=== PATIENT | male | born 1965 | race Caucasian/White ===

== ENCOUNTER → 2019-11-04 09:55 | Outpatient (BNVA) | payer BC, SELFPAY | PROVIDERS: Family Provider Family Medicine; PCP Nurse Practitioner Family; Referring Provider Nurse Practitioner Family; Visit Provider Anesthesiology Pain Medicine | DX: M54.16 Radiculopathy, lumbar region (principal); M47.816 Spondylosis without myelopathy or radiculopathy, lumbar region; M62.830 Muscle spasm of back; Z79.891 Long term (current) use of opiate analgesic | CPT/HCPCS: 99205 ==

== ENCOUNTER → 2021-08-13 14:19 | Outpatient (BNVA) | payer BC, SELFPAY | PROVIDERS: Family Provider Family Medicine; PCP Family Medicine; Visit Provider Urology | DX: N48.9 Disorder of penis, unspecified (principal) | CPT/HCPCS: 81003 ==

== ENCOUNTER 2021-10-25 03:27 | Inpatient (IN) | payer BC, SELFPAY ==
[2021-10-25] VITALS (14 sets, daily range): BP systolic 135–185; BP diastolic 74–105; PULSE 65–98; RESP 18–22; TEMP 36.7–37.1; O2SAT 94–100; BMI 24.4
--- NOTE | 2021-10-25 03:31 | ECG_ITS ---
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 Measurements Intervals [place] Rate: 67 P: 66 [place]: 132 QRS: 84 QRSD: 149 T: 57 QT: 448 QTc: 473 Interpretive Statements SINUS RHYTHM RIGHT BUNDLE BRANCH BLOCK [120+ ms QRS DURATION, UPRIGHT V1, 40+ ms S IN I/aVL/V4/V5/V6] No previous ECG available for comparison Electronically Signed On 10-26-2021 8:34:58 MACHINE ETCHER by Jennifer Jovel M.D. [id number]
--- NOTE | 2021-10-25 03:31 | XRR_ITS ---
PROCEDURE INFORMATION: Exam: XR Chest Exam date and time: 10/25/2021 3:31 AM Age: 56 years old Clinical indication: Chest pressure; Patient HX: C/O chest pain. ; Additional info: Cp TECHNIQUE: Imaging protocol: XR of the chest. Views: 1 view. COMPARISON: CT abdomen pelvis w con* [id number] 01/31/2016 10:07 AM FINDINGS: Lungs: Unremarkable. No consolidation. Pleural spaces: Unremarkable. No pleural effusion. No pneumothorax. Heart/Mediastinum: Unremarkable. No cardiomegaly. Bones/joints: Unremarkable. XR/XR chest 1V portable [id number] IMPRESSION: No acute findings.
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
[2021-10-25 03:38] LABS: Basophils % 0.2 %; Eosinophils % 0.2 %; Hematocrit 42.7 % (42.0-52.0); Hemoglobin 14.2 g/dL (11.7-16.6); Lymphocytes # 0.8 10^3/uL (0.8-4.8); Mean Corpuscular HGB Conc 33.3 g/dL (30.0-36.0); Mean Corpuscular Hemoglobin 29.8 pg (28.0-34.0); Mean Corpuscular Volume 89.5 fl (80-94); Mean Platelet Volume 9.7 fL (7.4-10.4); Monocytes # 0.6 10^3/uL (0.2-0.9); Monocytes % 5.7 %; Neutrophils # 9.59 10^3/uL (1.8-7.7); Neutrophils % 86.6 %; Nucleated Red Blood Cells % 0 %; Platelet Count 302 10^3/cmm (130-400); Red Blood Count 4.77 10^6/uL (4.1-5.3); Red Cell Distribution Width 13.8 % (12.1-15.1); White Blood Count 11.1 10^3/uL (4.0-10.0)
[2021-10-25] MEDS: sodium chloride 0.9% 1,000 ML 999 ML IV (03:39)
[2021-10-25] MEDS: lidocaine 2% viscous 15 ML, aluminum-mag hydrox-simethicon 30 ML, sucralfate oral liq 1 GM PO (03:40)
--- NOTE | 2021-10-25 03:47 | CTR_ITS ---
PROCEDURE INFORMATION: Exam: CT Abdomen And Pelvis With Contrast Exam date and time: 10/25/2021 3:47 AM Age: 56 years old Clinical indication: Vomiting; Abdominal pain; Patient HX: Epigastric pain with bile emesis. ; Additional info: Abd pain TECHNIQUE: Imaging protocol: Computed tomography of the abdomen and pelvis with contrast. Radiation optimization: All CT scans at this facility use at least one of these dose optimization techniques: automated exposure control; mA and/or kV adjustment per patient size (includes targeted exams where dose is matched to clinical indication); or iterative reconstruction. Contrast material: OMNI 300; Contrast volume: 95 ml; Contrast route: INTRAVENOUS (IV); COMPARISON: CT abdomen pelvis w con* [id number] 01/31/2016 10:07 AM RADIATION DOSE METRICS: Total DLP (mGy-cm): 1720.65 FINDINGS: Lungs: A partially calcified nodularity seen in the left lung base laterally measuring 4.5 mm likely representing a benign partially calcified granuloma. Liver: Normal. No mass. Gallbladder and bile ducts: The gallbladder is patulous and surrounded by some strandy and hazy opacities and pericholecystic fluid, findings suggesting inflammatory changes and acalculous cholecystitis. Pancreas: Normal. No ductal dilation. Spleen: Normal. No splenomegaly. Adrenal glands: Normal. No mass. Kidneys and ureters: There are benign appearing hypoattenuation cystic lesions seen within both kidneys, largest is seen on the right measuring 9.3 mm. Stomach and bowel: There is mild bowel wall thickening seen within the hepatic flexure of the colon possibly representing reactive inflammatory changes. There are nondilated small bowel loops present containing fluid and a few air-fluid levels that could represent ileus. Appendix: No evidence of appendicitis. Intraperitoneal space: Unremarkable. No free air. No significant fluid collection. Vasculature: Unremarkable. No abdominal aortic aneurysm. Lymph nodes: Unremarkable. No enlarged lymph nodes. Urinary bladder: Unremarkable as visualized. Reproductive: Unremarkable as visualized. Bones/joints: Unremarkable. No acute fracture. Soft tissues: Unremarkable. Other findings: There is mild thickening of Gerota's fascia on the right. Strandy opacities are seen in the perinephric fascia bilaterally most probably representing chronic scarring. CT/CT abdomen pelvis w con* [id number] IMPRESSION: 1. Patulous gallbladder with mild pericholecystic fluid and surrounding inflammatory changes suggesting acalculous cholecystitis. 2. Probable reactive inflammatory changes seen within the adjacent hepatic flexure of the colon. 3. Benign bilateral renal cysts, the largest seen on the right measuring 9.3 mm. No further workup needed. 4. Nondilated small bowel loops containing fluid and air fluid levels could represent mild ileus. COMMENTS: Consistent with the [place] [employer]'s Incidental Findings Committee white paper (J Am Marvin Radiol 2018): Any incidental renal lesion less than 1 cm or classified as too small to characterize, or any incidental cystic renal lesion characterized as simple-appearing, is likely benign. No follow-up imaging is recommended for these lesions per consensus recommendations based on imaging criteria.
[2021-10-25] MEDS: ondansetron 2 mg/ML SDV 2 mL 4 MG IVP (03:51)
[2021-10-25] MEDS: morphine 4 mg/mL SDV 1 mL IVP (03:52)
[2021-10-25 03:56] LABS: Troponin(5th) Baseline 12 ng/L (0-15)
[2021-10-25 03:59] LABS: Alanine Aminotransferase 14 U/L (0-41); Albumin Level 4.3 g/dL (3.5-5.2); Alkaline Phosphatase 57 IU/L (40-130); Anion Gap 19.4 (5-19); Aspartate Amino Transferase 16 U/L (0-40); Blood Urea Nitrogen 13 mg/dL (6-20); Calcium 8.9 mg/dL (8.5-10.5); Carbon Dioxide 24 mmol/L (22-29); Chloride 92 mmol/L (98-107); Globulin 2.5 g/dL (1.3-4.6); Glomerular Filtration Rate 117.5 mL/min (90-130); Glucose 260 mg/dL (65-115); Lipase 30 U/L (13-60); Osmolality Calculated 283 mOsm/kg (285-295); Potassium 3.4 mmol/L (3.5-5.1); Sodium 132 mmol/L (136-145); Total Bilirubin 1.5 mg/dL (0.15-1.2); Total Protein 6.8 g/dL (6.6-8.7)
[2021-10-25] MEDS: iohexol 300 mg/mL 100 mL Btl IV (04:11)
[2021-10-25] MEDS: HYDROmorphone 1 mg/mL INJ 1 mL IVP (05:27)
--- NOTE | 2021-10-25 05:31 | ECG_ITS ---
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 Measurements Intervals [place] Rate: 74 P: 67 OR: 128 QRS: 88 QRSD: 150 T: 46 QT: 424 QTc: 471 Interpretive Statements SINUS RHYTHM RIGHT BUNDLE BRANCH BLOCK [120+ ms QRS DURATION, UPRIGHT V1, 40+ ms S IN I/aVL/V4/V5/V6] Compared to ECG 10/25/2021 03:33:09 No significant changes Electronically Signed On 10-26-2021 9:02:50 CPR AMBULANCE DRIVER by Jennifer Jovel M.D. [id number]
[2021-10-25] MEDS: piperacillin-tazobactam 3.375 GM in sodium chloride 0.9% (plus) 50 ML IV ×3 (05:44→15:27)
[2021-10-25 05:52] LABS: Troponin 5 2HR 10.33 ng/L (0-15)
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
[2021-10-25 06:31] LABS: INR 1.03 (0.8-1.2)
[2021-10-25 06:50] LABS: Troponin 5 2HR Delta -1.67 ABS# (0-10)
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
--- NOTE | 2021-10-25 07:26 | US_ITS ---
WS: [id number] ULTRASOUND ABDOMEN LIMITED CLINICAL INFORMATION: Right upper quadrant abdominal pain COMPARISON: CT October 25, 2021 FINDINGS: Technically difficult study Liver Size: Mild hepatomegaly Craniocaudal length: 17.0 cm. Echogenicity: Normal. Surface nodularity: None. Mass (size and location): None. Bile ducts Intrahepatic ducts: Normal. Common bile duct diameter: 0.3 cm. Gallbladder Hydropic Gallstones: None. Gallbladder sludge: Present Gallbladder wall thickenin.4 mm Pericholecystic fluid: None. Pancreas Normal as visualized. Right kidney: Normal. Hydronephrosis: None. Size: 12.1 cm x 6.0 cm x 4.4 cm. Abdominal aorta and IVC Visualized portions are normal. Ascites: None. US/US gall bladder [id number] IMPRESSION: Technically difficult study. 1. Mild hepatomegaly. No intrahepatic biliary ductal dilatation. 2. Hydropic gallbladder with sludge. Gallbladder wall thickening with mild cyril ma. No visualized cholelithiasis. Correlation for acalculous cholecystitis 3. Normal common bile duct. 4. No hydronephrosis in RIGHT kidney.
[2021-10-25] MEDS: sodium chloride 0.9% 1,000 ML 100 ML IV ×2 (07:43→17:13)
[2021-10-25] MEDS: metoprolol succinate ER (24 HR) 50 mg Tablet PO (07:47)
[2021-10-25] MEDS: atorvastatin 40 mg Tablet PO (07:47)
[2021-10-25] MEDS: escitalopram 10 mg Tablet PO (07:48)
[2021-10-25] MEDS: lisinopril 20 mg Tablet 40 MG PO (07:48)
[2021-10-25] MEDS: hydroCHLOROthiazide 25 mg Tablet PO (07:48)
[2021-10-25 09:27] LABS: Amphetamines Screen Urine Positive (Negative); Barbiturates Screen Urine Negative (Negative); Benzodiazepines Screen Urine Positive (Negative); Cocaine Screen Urine Negative (Negative); Opiate Screen Urine Positive (Negative); PCP Screen Urine Negative (Negative); THC Screen Urine Negative (Negative)
--- NOTE | 2021-10-25 09:31 | ECG_ITS ---
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 Measurements Intervals [place] Rate: 72 P: 63 MN: 138 QRS: 84 QRSD: 146 T: 38 QT: 408 QTc: 448 Interpretive Statements SINUS RHYTHM RIGHT BUNDLE BRANCH BLOCK [120+ ms QRS DURATION, UPRIGHT V1, 40+ ms S IN I/aVL/V4/V5/V6] Compared to ECG 10/25/2021 05:34:12 No significant changes Electronically Signed On 10-26-2021 8:59:04 LOAN DOCUMENTATION SPECIALIST by Jennifer Jovel M.D. [id number]
[2021-10-25 10:12] LABS: Troponin 5 6HR 10.61 ng/L (0-15)
--- NOTE | 2021-10-25 10:26 | PC.CHAP ---
Pastoral Care Encounter/Spiritual Assessment Type of Contact [] Declined print shop stenographer visit [] Patient/Family/Request visit [] Outpatient visit [] Follow-up visit [] Physician referral [] Code/Alert [x] Routine visit [] Staff referral [] Actively dying [] Patient sleeping [] Family support [] [] Out of room [] Palliative care [] [] Receiving care in room [] Pre-surgical visit [] Trauma [] Long length of stay [] ICU visit [] Other: Relational/Emotional Strength [x] Patient feels connected with others/family/visitors/staff [] Distress [] Loneliness/isolation [] Abandonment Spirituality of Patient [x] Person of [place] [] Attends Islam of their [place] [x] Believes in Prayer [] Reads Bible or Rastafarian materials [] There are Spiritual issues to be addressed Head Of Physics Interventions [x] Prayer [x] Active listening [x] Non-anxious presence [x] Spiritual/emotional support [] Crisis/trauma care [] Spiritual counseling [] Bereavement support [] Provided bereavement packet [] Provided Bible/devotional materials [] Provided toy/stuffed animal, coloring book to patient or family member [] Provided Communion [] Anointing/[place] [] Salvation x] Completed spiritual assessment [] Other: Impact on Illness or Injury [] Angry [] Fearful [] Anxious [] Often cries [] Exhaustion [] Unable to work [] Unable to attend religious [] Unable to walk/stand [] Unable to read [] Unable to drive [] Unable to eat/drink [] Unable to sleep [] Unable to be with family [] Patient intubated [] Other: Summary Time spent with patient
[2021-10-25 10:43] LABS: Troponin 5 6HR Delta -1.39 ng/L (0-12)
[2021-10-25] MEDS: HYDROmorphone 1 mg/mL INJ 1 mL 0.5 MG IVP ×2 (11:00→20:28)
[2021-10-25 11:02] LABS: Glucose Point of Care 221 mg/dL (70-110)
[2021-10-25] MEDS: insulin lispro 100 unit/1 mL SUBCUT ×3 (13:08→20:53)
--- NOTE | 2021-10-25 15:46 | PM.PN ---
Subjective Subjective: Pain in right upper quadrant. No trouble breathing. No chest pain or pressure. He usually has no limitations with ambulation. Able to get up a flight or more of stairs. Reports he had lost his about 5 months ago. Has history of drug use in the remote past, but reports recently with the loss, and also with poor appetite says he did a line not long ago given to him by his friend. He thought it would help his appetite. He understands that amphetamines are appetite suppressants, but says that usually he would feel hungry after they wear off. Discussed with him concerns regarding severe risks associated with amphetamine use. Counseled to abstain, which he says he is aware and is not planning on using any further. He denies IV drug use. He has no problems with us testing hepatitis and HIV. He denies any history of substance withdrawal. Vitals/I&O/Wt Last Vital Signs Temp 98.4 F 10/25/21 11:15 Pulse 92 10/25/21 11:15 Resp 18 10/25/21 11:15 BP 168/89 10/25/21 11:15 Pulse Ox 97 10/25/21 11:15 10/25/21 10/25/21 10/25/21 06:59 14:59 22:59 Intake Total 1000 / 1000 50 / 50 Output Total 300 / 300 Balance 1000 / 1000 -250 / -250 Weight last 48 hrs Weight 79.379 kg Physical Exam Const: COMMON NORMALS: no acute distress and patient oriented x3 HENMT: COMMON NORMALS: oropharynx normal Neck/C-Spine: COMMON NORMALS: no JVD Resp: COMMON NORMALS: normal respiratory effort and clear to auscultation bilaterally AUSCULTATION: clear to auscultation bilaterally Cardio: COMMON NORMALS: no JVD, regular rhythm, S1 normal heart sound present, S2 normal heart sound present and No murmurs present (Cardio) RHYTHM: regular rhythm HEART SOUNDS: S1 normal heart sound present and S2 normal heart sound present GI: COMMON NORMALS: Normal to inspection, nondistended, normoactive bowel sounds present and Soft to palpation PALPATION: Yes Soft to palpation and Yes Tenderness to palpation present (GI) Details: RUQ Extremity: COMMON NORMALS: no joint enlargement and no pedal edema Neuro: COMMON NORMALS: patient oriented x3 and moves all extremities Skin: COMMON NORMALS: no rashes or lesions noted GENERAL SKIN EXAM: no rashes or lesions noted Data : 10/25/21 03:33 10/25/21 03:33 A&P Assessment and plan (1) Cholecystitis: Signs of acute cholecystitis, appears to also be confirmed by ultrasound, and calculus. He otherwise reports is in good health, although has had recent amphetamine use, has remote history of heavy use, but reports recently rarely since his 5 months ago, and has had poor appetite. He otherwise does not have any exertional limitations he states he can walk unlimited distance on flat ground, do flights of stairs. Blood pressure bit on high side, but improving, would consider holding tomorrow's dose of lisinopril. But otherwise would not require additional optimization prior to proceeding with potential surgical intervention with usual precautions. We are checking hepatitis and HIV. Continue Zosyn, bowel rest. IV hydration. Status: Acute Plan Methamphetamine abuse. Counseled with regards to cessation. Continue to encourage. Will request information regarding rehabilitation if interested. We will check HIV, hepatitis. Ileus: Nothing by mouth. IV normal saline 100 ML's per hour Hyperbilirubinemia. Will monitor LFTs periodically with CMP Hyponatremia. Mild. Continue gentle IV hydration. Recheck level. Arthritis Peyronie's disease Depression. Lispro 10 Mill grams by mouth daily Diabetes. check fasting glucose every before meals and at bedtime and provide insulin sliding scale GERD Hyperlipidemia. Crestor 10 mg by mouth daily at bedtime Hypertension. Hydrochlorthiazide 25 Mill grams by mouth daily plus lisinopril 40 Mill cans daily plus metoprolol XL 50 Mill cans by mouth daily Tobacco abuse via chewing tobacco. Right bundle branch block. Chronic pain DVT Proflex is. Bilateral SCD Attestations Medical Necessity Statement*: Continue admission for assessment management of acute cholecystitis. Coding Level of Care Code Acute Health Insurance Adjuster for [facility] Garcia Diagnoses Cholecystitis K81.9
[2021-10-25 16:58] LABS: HIV 1 & 2 Antibody Non-Reactive (Non-Reactiv); HIV 1 & 2 Antigen Non-Reactive (Non-Reactiv)
[2021-10-25 17:04] LABS: Glucose Point of Care 183 mg/dL (70-110)
[2021-10-25 17:08] LABS: Hepatitis A Antibody IgM Non-Reactive (Nonreactive); Hepatitis B Core IgM Non-Reactive (Nonreactive); Hepatitis B Surface Antigen Non-Reactive (Nonreactive); Hepatitis C Virus Antibody Non-Reactive (Nonreactive)
[2021-10-25 20:56] LABS: Glucose Point of Care 186 mg/dL (70-110)
[2021-10-26] VITALS (13 sets, daily range): BP systolic 134–163; BP diastolic 81–93; PULSE 75–97; RESP 15–18; TEMP 36.4–37.7; O2SAT 94–98
[2021-10-26] MEDS: piperacillin-tazobactam 3.375 GM in sodium chloride 0.9% (plus) 50 ML IV ×4 (00:11→23:01)
[2021-10-26] MEDS: acetaminophen 325 mg Tablet 650 MG PO (00:11)
[2021-10-26] MEDS: sodium chloride 0.9% 1,000 ML 100 ML IV ×2 (03:04→14:50)
[2021-10-26] MEDS: HYDROmorphone 1 mg/mL INJ 1 mL 0.5 MG IVP ×2 (03:05→19:45)
[2021-10-26 05:48] LABS: Basophils % 0.2 %; Hematocrit 38.4 % (42.0-52.0); Hemoglobin 12.7 g/dL (11.7-16.6); Lymphocytes % 6.1 %; Mean Corpuscular HGB Conc 33.1 g/dL (30.0-36.0); Mean Corpuscular Hemoglobin 29.9 pg (28.0-34.0); Mean Corpuscular Volume 90.4 fl (80-94); Mean Platelet Volume 9.7 fL (7.4-10.4); Monocytes # 1.5 10^3/uL (0.2-0.9); Monocytes % 9.5 %; Neutrophils # 13.63 10^3/uL (1.8-7.7); Neutrophils % 83.6 %; Nucleated Red Blood Cells % 0 %; Platelet Count 324 10^3/cmm (130-400); Red Blood Count 4.25 10^6/uL (4.1-5.3); Red Cell Distribution Width 14.1 % (12.1-15.1); White Blood Count 16.3 10^3/uL (4.0-10.0)
--- NOTE | 2021-10-26 06:00 | ECG_ITS ---
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 Measurements Intervals [place] Rate: 78 P: 66 UT: 122 QRS: 90 QRSD: 146 T: 44 QT: 408 QTc: 467 Interpretive Statements SINUS RHYTHM POSSIBLE LEFT ATRIAL ENLARGEMENT [-0.1mV P WAVE IN V1/V2] RIGHT BUNDLE BRANCH BLOCK [120+ ms QRS DURATION, UPRIGHT V1, 40+ ms S IN I/aVL/V4/V5/V6] Compared to ECG 10/25/2021 13:52:29 No significant changes Electronically Signed On 10-26-2021 8:38:55 CUTTER OPERATOR by Jennifer Jovel M.D. [id number]
[2021-10-26 06:11] LABS: Alanine Aminotransferase 11 U/L (0-41); Albumin Level 3.3 g/dL (3.5-5.2); Alkaline Phosphatase 60 IU/L (40-130); Anion Gap 16.5 (5-19); Aspartate Amino Transferase 15 U/L (0-40); Blood Urea Nitrogen 10 mg/dL (6-20); Calcium 8.1 mg/dL (8.5-10.5); Carbon Dioxide 25 mmol/L (22-29); Chloride 92 mmol/L (98-107); Glomerular Filtration Rate 140.4 mL/min (90-130); Glucose 183 mg/dL (65-115); Osmolality Calculated 274 mOsm/kg (285-295); Potassium 3.5 mmol/L (3.5-5.1); Sodium 130 mmol/L (136-145); Total Bilirubin 1.3 mg/dL (0.15-1.2); Total Protein 6.3 g/dL (6.6-8.7)
--- NOTE | 2021-10-26 07:15 | P.PN_ITS ---
Subjective Subjective: Patient overall is about the same/trending up leukocytosis and trending down and total bilirubin to 1.3 Ultrasound liver and gallbladder showed: 1.? Mild hepatomegaly. No intrahepatic biliary ductal dilatation. 2.? Hydropic gallbladder with sludge. Gallbladder wall thickening with mild edema. No visualized cholelithiasis. Correlation for acalculous cholecystitis 3.? Normal common bile duct. 4.? No hydronephrosis in RIGHT kidney. ? Medications: Reviewed: Yes Vitals/I&O/Wt Last Vital Signs Temp 98.8 F 10/26/21 04:00 Pulse 82 10/26/21 04:00 Resp 18 10/26/21 04:00 BP 156/90 10/26/21 04:00 Pulse Ox 96 10/26/21 04:00 10/25/21 10/26/21 10/26/21 22:59 06:59 14:59 Intake Total 1240 / 1290 1035 / 2325 Output Total 0 / 300 400 / 700 Balance 1240 / 990 635 / 1625 Weight last 48 hrs Weight 175 lb Physical Exam Narrative: Patient is conscious alert oriented X3 No apparent distress BMI 24.4 Head and neck examination PERRLA no masses no cervical lymphadenopathy no jaundice Abdomen tender RUQ nondistended soft no organomegaly guarding or rigidity/no signs of peritonitis Extremities no cyanosis no clubbing no edema Data : 10/26/21 04:35 10/26/21 04:35 A&P Assessment and plan (1) Cholecystitis: Plan of care; After thorough history physical examination and reviewing the chart and images with my personal intrepreatation.I counseled the patient for laparoscopic cholecystectomy possible open, indications risks including but not limited injury to the common bile duct and/or other viscera,that may require potential future surgical interventions including but not limited to ERCP and or laparatomy that may include Hepatobiliary surgery.Benefits and alternatives all discussed with the patient, and patient did agree to proceed accordingly. All questions have been answered and all concerns have been addressed to patie nt's satisfaction. Rationale was carefully and clearly discussed with the patient.Appropriate infor med consent have been reviewed and signed. Patient was tested positive for amphetamines and benzodiazepines we will make sure anesthesia is aware of that. 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
[2021-10-26] MEDS: acetaminophen 1,000 MG/100 ML PIGGYBACK 400 MG IV (07:45)
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
[2021-10-26] MEDS: heparin 5,000 unit/mL INJ 1 mL 2000 UNIT SUBCUT (07:58)
[2021-10-26 08:15] LABS: Glucose Point of Care 178 mg/dL (70-110)
[2021-10-26] MEDS: lidocaine 2% INJ 20 mL INJECTION (08:34)
--- NOTE | 2021-10-26 10:13 | P.OP_ITS ---
Operative Report Date of procedure: October 26, 2021 Pre-op diagnosis: Preop Diagnosis Cholecystitis Post-op diagnosis: Gangrenous cholecystitis Post-op findings: Acute on top of chroniccholecystitis Fatty liver Hepatic flexure and omentum encasing the gallbladder Procedure done: 1-Laparoscopic cholecystectomy 2-Laparoscopic aspiration of gallbladder fluid Implants: Surgicel Specimens removed/disposition: Gallbladder and contents Gallbladder fluid for cultures and sensitivity Surgeon: Ta Cobb MD Branch Operations Manager: Adolfo Harmon Circulating nurse Sahara Carpenter Estimated blood loss (mL): 50 IV fluids (mL): 700 Procedure: Patient was identified in the holding area and taken back to the operative suite, placed in supine position intubated by anesthesia . Time-out was done verifying the patient's name/date of /planned procedure and destination after the procedure, all were in agreement. SCDs confirmed to be functioning, preoperative antibiotics administered per protocol, and beta denis protocol was confirmed. Patient was appropriately secured to the table, footboard was applied to the OR table, before prep and drape anesthesia was asked to tilt the table back and forth to make sure that the patient is appropriately secured and she was. Prep and drape of the abdomen was done under the usual sterile technique, followed by that supraumbilical skin incision,skin incision was done by a 15 blade knife, and stay sutures were applied to the fascia and Chavez trocar technique was used to enter the abdominal without injuring any abdominal viscera, started by low flow gas insufflation followed by a high flow, started with a 10 mm laparoscope and under direct vision there was no evidence of any injuries, the scope then switched to a 30? ,10 millimeter scope and under direct visualization 5 millimeter trocar was inserted in the epigastric region followed by two 5 mm trocars were inserted in the right upper quadrant that was done after injection of local lidocaine 2% at all incision sites. The hepatic flexure and omentum were increasing the gallbladder that was taken down gently with blunt dissection, noticed that the patient had distended transverse colon, no violation of the colon was encountered. Gallbladder showed acute on top chronic cholecystitis and Fatty Liver, gangrenous patch occupying the fundus of the gallbladder. Aspiration of about 100 mL of dark green-colored bile and was sent for cultures and sensitivity. Patient was then positioned in the head up and tilted to the left. Ratcheted forceps were introduced into the lateral most 5mm port and was applied unto the fundus of the gallbladder cephalad and using Bullet forceps the infundibulum of the gallbladder was retracted laterally. Extensive scarring and inflammatory process around the cystic duct and cystic artery.Appropriate time was taken to dissect both structures. Combination of sharp and blunt dissection using [place] forceps then L-hook cautery to dissect the peritoneum overlying the Calot's triangle which was then opened medially and laterally until the cystic duct and the cystic artery were skeletonized. Dissection was carried along the body of the gallbladder and after ensuring critical view of safety was identfied. Cystic duct and cystic artery where seen connected to the gallbladder. Clips were applied on the cystic duct towards the common bile duct 1 towards the gallbladder then divided is in sharp scissors, 2 clips were then applied onto the cystic artery and 1 towards the gallbladder and divided by sharp scissors. Noticed that the gallbladder has an intrahepatic component. Dissection was then carried along of the gallbladder from the gallbladder fossa using cautery as well as sharp dissection with heat energy. The gallbladder then was dissected out from the gallbladder fossa totally , cholecystectomy was then achieved and was placed in an Endo Catch bag and then retrieved from the Chavez trocar site under direct visualization using a 5 mm 30? scope through the epigastric trocar, specimen was then passed to the circulating nurse to go for permanent pathology,irrigation and hemostasis was done to the gallbladder fossa after hemostasis was secured by placement of Surgicel at the gallbladder fossa final survey laparoscopy was done that showed no injuries. Suction irrigation was obtained The supraumbilical fascial defect was then closed using interrupted number one PDS sutures using a fascial closure device ;Justice Flynn under direct visualization,following that Gas was allowed to deflate,Trocars were then taken out under direct vision there was no evidence of bleeding. Specimen was passed to the circulating nurse for permanent pathology. No drains were placed and the supraumbilical incision as well as all trocar sites were closed by 3/0 Vicryl followed by 4-0 Monocryl to approximate the skin edges of the incisions , dressing was applied in the form of surical glue and the patient patient got extubated and was taken to recovery area in a stable condition. Count of sponges,needles and instruments were completed at the end of the p rocedure I was present for the whole entire procedure.
--- NOTE | 2021-10-26 10:54 | ANE.PACU2 ---
Inpatient post-anesthesia follow up: Airway intact: Yes Vital signs: Temperature 98.2 F Pulse Rate 93 Respiratory Rate 16 Blood Pressure 134/81 Pulse Oximetry 94 Oxygen Delivery Me thod Room Air Oxygen Flow Rate 6 Fraction of Inspir ed Oxygen Hydration adequate: Yes Nausea and vomiting: No Pain level: 2 Mental status: Baseline
[2021-10-26 16:58] LABS: Glucose Point of Care 227 mg/dL (70-110)
[2021-10-26] MEDS: insulin lispro 100 unit/1 mL SUBCUT ×2 (17:05→21:51)
--- NOTE | 2021-10-26 20:22 | PM.PN ---
Subjective Subjective: He is feeling much better after cholecystectomy. Denies chest pain pressure. No trouble breathing. Pain under control. Vitals/I&O/Wt Last Vital Signs Temp 98.4 F 10/26/21 16:08 Pulse 94 10/26/21 16:08 Resp 16 10/26/21 19:45 BP 135/82 10/26/21 16:08 Pulse Ox 96 10/26/21 16:08 10/26/21 10/26/21 10/26/21 06:59 14:59 22:59 Intake Total 1035 / 2325 1850 / 1850 480 / 2330 Output Total 400 / 700 50 / 50 Balance 635 / 1625 1800 / 1800 480 / 2280 Weight last 48 hrs Weight 79.379 kg Physical Exam Const: COMMON NORMALS: no acute distress and patient oriented x3 HENMT: COMMON NORMALS: oropharynx normal Neck/C-Spine: COMMON NORMALS: no JVD Resp: COMMON NORMALS: normal respiratory effort and clear to auscultation bilaterally AUSCULTATION: clear to auscultation bilaterally Cardio: COMMON NORMALS: no JVD, regular rhythm, S1 normal heart sound present, S2 normal heart sound present and No murmurs present (Cardio) RHYTHM: regular rhythm HEART SOUNDS: S1 normal heart sound present and S2 normal heart sound present GI: COMMON NORMALS: Normal to inspection, nondistended, normoactive bowel sounds present and Soft to palpation PALPATION: Yes Soft to palpation and Yes Tenderness to palpation present (GI) Extremity: COMMON NORMALS: no joint enlargement and no pedal edema Neuro: COMMON NORMALS: patient oriented x3 and moves all extremities Skin: COMMON NORMALS: no rashes or lesions noted GENERAL SKIN EXAM: no rashes or lesions noted Data : 10/26/21 04:35 10/26/21 04:35 A&P Assessment and plan (1) Cholecystitis: Doing well after cholecystectomy with finding of gangrenous cholecystitis. Discussed with surgery. Request to continue IV antibiotics currently, reassess tomorrow, continue oral antibiotics at discharge. Continue Zosyn, bowel rest. IV hydration. Status: Acute Plan Methamphetamine abuse. Nonreactive HIV and hepatitis panels. Counseled with regards to cessation. Continue to encourage. Will request information regarding rehabilitation if interested. We will check HIV, hepatitis. Ileus: Nothing by mouth. IV normal saline 100 ML's per hour Hyperbilirubinemia. Will monitor LFTs periodically with CMP Hyponatremia. Mild. Continue gentle IV hydration. Recheck level. Arthritis Peyronie's disease Depression. Lispro 10 Mill grams by mouth daily Diabetes. check fasting glucose every before meals and at bedtime and provide insulin sliding scale GERD Hyperlipidemia. Crestor 10 mg by mouth daily at bedtime Hypertension. Hydrochlorthiazide 25 Mill grams by mouth daily plus lisinopril 40 Mill cans daily plus metoprolol XL 50 Mill cans by mouth daily Tobacco abuse via chewing tobacco. Right bundle branch block. Chronic pain DVT Proflex is. Bilateral SCD Attestations Medical Necessity Statement*: Continue admission for cyst management following acute cholecystitis, cholecystectomy, gangrenous cholecystitis. Coding Level of Care Code Acute [employer] for [facility] Diagnoses Cholecystitis K81.9
[2021-10-26 21:47] LABS: Glucose Point of Care 207 mg/dL (70-110)
[2021-10-26 21:47] LABS: Glucose Point of Care 208 mg/dL (70-110)
[2021-10-26] MEDS: HYDROcodone-acetaminophen 5-325 mg Tablet 1 TAB PO (21:53)
[2021-10-27] VITALS: BP 152/84; PULSE 91; TEMP 37.3; O2SAT 95
[2021-10-27] MEDS: sodium chloride 0.9% 1,000 ML 100 ML IV ×2 (00:32→11:43)
[2021-10-27 04:00] VITALS: BP 143/80; PULSE 82; TEMP 36.8; O2SAT 97
[2021-10-27] MEDS: HYDROcodone-acetaminophen 5-325 mg Tablet 1 TAB PO (04:40)
[2021-10-27 04:52] LABS: Basophils % 0.1 %; Hematocrit 34.3 % (42.0-52.0); Hemoglobin 11.1 g/dL (11.7-16.6); Lymphocytes # 0.7 10^3/uL (0.8-4.8); Lymphocytes % 6.6 %; Mean Corpuscular HGB Conc 32.4 g/dL (30.0-36.0); Mean Corpuscular Hemoglobin 29.8 pg (28.0-34.0); Mean Platelet Volume 9.6 fL (7.4-10.4); Monocytes # 0.8 10^3/uL (0.2-0.9); Monocytes % 7.4 %; Neutrophils # 9.39 10^3/uL (1.8-7.7); Neutrophils % 85.5 %; Nucleated Red Blood Cells % 0 %; Platelet Count 316 10^3/cmm (130-400); Red Blood Count 3.73 10^6/uL (4.1-5.3); Red Cell Distribution Width 14.3 % (12.1-15.1)
[2021-10-27 05:13] LABS: Alanine Aminotransferase 33 U/L (0-41); Albumin Level 2.9 g/dL (3.5-5.2); Alkaline Phosphatase 178 IU/L (40-130); Aspartate Amino Transferase 42 U/L (0-40); Blood Urea Nitrogen 17 mg/dL (6-20); Calcium 7.8 mg/dL (8.5-10.5); Carbon Dioxide 25 mmol/L (22-29); Chloride 98 mmol/L (98-107); Glomerular Filtration Rate 100.7 mL/min (90-130); Glucose 193 mg/dL (65-115); Osmolality Calculated 287 mOsm/kg (285-295); Sodium 135 mmol/L (136-145); Total Bilirubin 0.5 mg/dL (0.15-1.2); Total Protein 5.9 g/dL (6.6-8.7)
--- NOTE | 2021-10-27 05:35 | PC.NURSE ---
SHFT SUMMARY Has rested well. Is pleasant. Was medicated with IV Dilaudid at beginning of shift for incisional abd pain then po Hydrocodone X2 remainder of night. Umbilical incision and X3 stab incisions all C&D with dermabond closure. Is getting up well and ambulating. Urinating well and has been using urinal to monitor I&O this shift. IV infusing at 100ml/hr rate. Receiving IV antibiotics.
[2021-10-27 06:42] LABS: Glucose Point of Care 171 mg/dL (70-110)
[2021-10-27 07:11] VITALS: BP 162/87; PULSE 88; RESP 16; TEMP 37; O2SAT 95
--- NOTE | 2021-10-27 07:36 | P.PN_ITS ---
Subjective Subjective: Patient overall feels better. No acute events overnight. Trending down leukocytosis Medications: Reviewed: Yes Vitals/I&O/Wt Last Vital Signs Temp 98.6 F 10/27/21 07:11 Pulse 88 10/27/21 07:11 Resp 16 10/27/21 07:11 BP 162/87 10/27/21 07:11 Pulse Ox 95 10/27/21 07:11 10/26/21 10/27/21 10/27/21 22:59 06:59 14:59 Intake Total 770 / 2620 1220 / 3840 Output Total 350 / 400 600 / 1000 Balance 420 / 2220 620 / 2840 Physical Exam Narrative: Patient is conscious alert oriented X3 No apparent distress BMI 24.4 Head and neck examination PERRLA no masses no cervical lymphadenopathy no jaundice Abdomen nontender except slightly at the incision site nondistended soft no organomegaly guarding or rigidity/no signs of peritonitis Extremities no cyanosis no clubbing no edema Data : 10/27/21 03:50 10/27/21 03:50 A&P Assessment and plan (1) Cholecystitis: Assessment 56 years old gentleman status post laparoscopic cholecystectomy 10/26/2021 Plan condition resolved and patient can be advanced his diet as tolerated Continue antimicrobial therapy upon discharge for 5 days at least Return to surgery office in 1 week Assurance and education All questions have been answered and all concerns have been addressed to patient's satisfaction. Status: Resolved Attestations Medical Necessity Statement*: Per admitting service Coding Level of Care Code Acute Fisheries Officer for [facility] Jose Diagnoses Cholecystitis K81.9
--- NOTE | 2021-10-27 10:58 | PM.DCS ---
Discharge Providers Date of Admission: 10/25/21 05:59 Date of Discharge: October 27, 2021 Attending Provider at Admission: Jocelyn Grimm DO Attending Provider at Discharge: Nathanael Ford Primary Care Provider: Chata Vogel DO Diagnoses at Discharge Discharge Diagnosis (1) Cholecystitis: Status: Resolved Reason for Visit Reason for Visit: cp Hospital Course Hospital Course Pleasant 56-year-old gentleman with osteoarthritis, correcting, DM2, GERD, HTN, was admitted for assessment management of acute cholecystitis after presenting with right upper quadrant pain, which she is bowel rest initially, fluid support, IV antibiotic coverage with Zosyn, was assessed by surgery, underwent laparoscopic cholecystectomy on 10/26, with finding of gangrenous cholecystitis. Continues on IV antibiotics. Overnight additionally until today, he is doing well, without signs of sepsis, feeling better, some abdominal pain remains. No bowel movement, but feeling a rumbling in his abdomen. Has been up. Tolerating small amounts of oral intake. Will discharge home with additional 5 days of antibiotics as per recommendations. As above history of drug use disorder, and reports that recently took some methamphetamine by snorting. Hepatitis and HIV were requested and returned negative. He was counseled on avoiding it with this lesion risks. Please continue to encourage exercise. Continue checking blood pressure and other risk factors of cardiovascular disease. Please reassess blood pressures in office. Could use better control, although elevation may have been due to acute illness. Physical Exam Const: COMMON NORMALS: no acute distress and patient oriented x3 HENMT: COMMON NORMALS: oropharynx normal Neck/C-Spine: COMMON NORMALS: no JVD Resp: COMMON NORMALS: normal respiratory effort and clear to auscultation bilaterally AUSCULTATION: clear to auscultation bilaterally Cardio: COMMON NORMALS: no JVD, regular rhythm, S1 normal heart sound present, S2 normal heart sound present and No murmurs present (Cardio) RHYTHM: regular rhythm HEART SOUNDS: S1 normal heart sound present and S2 normal heart sound present GI: COMMON NORMALS: Normal to inspection, nondistended, normoactive bowel sounds present, Soft to palpation and non-tender PALPATION: Yes Soft to palpation OTHER: Trochar wounds clean Extremity: COMMON NORMALS: no joint enlargement and no pedal edema Neuro: COMMON NORMALS: patient oriented x3 and moves all extremities Skin: COMMON NORMALS: no rashes or lesions noted GENERAL SKIN EXAM: no rashes or lesions noted Discharge Data Studies Completed and Pending Completed Studies During Hospitalization Category Date Time Status CT abdomen pelvis w con* [id number] Urgent Cat Scan 10/25/21 03:47 Completed XR chest 1V portable [id number] Stat Exams 10/25/21 03:31 Completed US gall bladder [id number] Urgent Ultrasound 10/25/21 07:26 Completed Pending at discharge Category Date Time Status ES surgery / GI images Routine Exams 10/26/21 07:13 Taken Anaerobic Culture Routine Lab 10/26/21 08:40 Results Body Fluid Culture & GS Routine Lab 10/26/21 08:40 Results Complete Blood Count w/Auto AM LABS Lab 10/28/21 04:00 Ordered Complete Blood Count w/Auto AM LABS Lab 10/29/21 04:00 Ordered Comprehensive Metabolic Panel AM LABS Lab 10/28/21 04:00 Ordered Comprehensive Metabolic Panel AM LABS Lab 10/29/21 04:00 Ordered Pathology: Surgical [PTH] Routine Pth 10/26/21 10:15 Ordered Radiology Impressions Chest X-Ray 10/25/21 03:31 IMPRESSION: No acute findings. Abdomen/Pelvis CT 10/25/21 03:47 IMPRESSION: 1. Patulous gallbladder with mild pericholecystic fluid and surrounding inflammatory changes suggesting acalculous cholecystitis. 2. Probable reactive inflammatory changes seen within the adjacent hepatic flexure of the colon. 3. Benign bilateral renal cysts, the largest seen on the right measuring 9.3 mm. No further workup needed. 4. Nondilated small bowel loops containing fluid and air fluid levels could represent mild ileus. COMMENTS: Consistent with the [employer]'s Incidental Findings Committee white paper (J Am Marvin Radiol 2018): Any incidental renal lesion less than 1 cm or classified as too small to characterize, or any incidental cystic renal lesion characterized as simple-appearing, is likely benign. No follow-up imaging is recommended for these lesions per consensus recommendations based on imaging criteria. Gallbladder Ultrasound 10/25/21 07:26 IMPRESSION: Technically difficult study. 1. Mild hepatomegaly. No intrahepatic biliary ductal dilatation. 2. Hydropic gallbladder with sludge. Gallbladder wall thickening with mild edema. No visualized cholelithiasis. Correlation for acalculous cholecystitis 3. Normal common bile duct. 4. No hydronephrosis in RIGHT kidney. Laboratory Results WBC 11.0 10^3/uL (4.0-10.0) H 10/27/21 03:50 RBC 3.73 10^6/uL (4.1-5.3) L 10/27/21 03:50 Hgb 11.1 g/dL (11.7-16.6) L 10/27/21 03:50 Hct 34.3 % (42.0-52.0) L 10/27/21 03:50 MCV 92.0 fl (80-94) 10/27/21 03:50 MCH 29.8 pg (28.0-34.0) 10/27/21 03:50 MCHC 32.4 g/dL (30.0-36.0) 10/27/21 03:50 RDW 14.3 % (12.1-15.1) 10/27/21 03:50 Plt Count 316 10^3/cmm (130-400) 10/27/21 03:50 MPV 9.6 fL (7.4-10.4) 10/27/21 03:50 Neut % (Auto) 85.5 % 10/27/21 03:50 Lymph % (Auto) 6.6 % 10/27/21 03:50 Swisher % (Auto) 7.4 % 10/27/21 03:50 Eos % (Auto) 0.0 % 10/27/21 03:50 Baso % (Auto) 0.1 % 10/27/21 03:50 Neut # (Auto) 9.39 10^3/uL (1.8-7.7) H 10/27/21 03:50 Lymph # (Auto) 0.7 10^3/uL (0.8-4.8) L 10/27/21 03:50 Swisher # (Auto) 0.8 10^3/uL (0.2-0.9) 10/27/21 03:50 Eos # (Auto) 0.0 10^3/uL (0.0-0.8) 10/27/21 03:50 Baso # (Auto) 0.0 10^3/uL (0.0-0.1) 10/27/21 03:50 Nucleated RBC % (auto) 0 % 10/27/21 03:50 Nucleated RBCs # 0.0 /100WBC 10/27/21 03:50 PT 13.80 SECONDS (12.1-14.9) 10/25/21 03:33 INR 1.03 (0.8-1.2) 10/25/21 03:33 APTT 33.0 SECONDS (23.9-36.7) 10/25/21 03:33 Sodium 135 mmol/L (136-145) L 10/27/21 03:50 Potassium 4.0 mmol/L (3.5-5.1) 10/27/21 03:50 Chloride 98 mmol/L (98-107) 10/27/21 03:50 Carbon Dioxide 25 mmol/L (22-29) 10/27/21 03:50 Anion Gap 16.0 (5-19) 10/27/21 03:50 BUN 17 mg/dL (6-20) 10/27/21 03:50 Creatinine 0.8 mg/dL (0.7-1.2) 10/27/21 03:50 GFR Calculation 100.7 mL/min (90-130) 10/27/21 03:50 Glucose 193 mg/dL (65-115) H 10/27/21 03:50 POC Glucose 171 mg/dL (70-110) H 10/27/21 06:30 Calculated Osmolality 287 mOsm/kg (285-295) 10/27/21 03:50 Calcium 7.8 mg/dL (8.5-10.5) L 10/27/21 03:50 Total Bilirubin 0.5 mg/dL (0.15-1.2) 10/27/21 03:50 AST 42 U/L (0-40) H 10/27/21 03:50 ALT 33 U/L (0-41) 10/27/21 03:50 Alkaline Phosphatase 178 IU/L (40-130) H 10/27/21 03:50 Troponin T Baseline 12 ng/L (0-15) 10/25/21 03:33 Troponin T 120 Minute 10.33 ng/L (0-15) 10/25/21 05:30 Delta Troponin T -1.67 ABS# (0-10) L 10/25/21 05:30 Troponin T Hi Sens 6Hr 10.61 ng/L (0-15) 10/25/21 09:44 Troponin T Hi Sens 6Hr Delta -1.39 ng/L (0-12) L 10/25/21 09:44 Total Protein 5.9 g/dL (6.6-8.7) L 10/27/21 03:50 Albumin 2.9 g/dL (3.5-5.2) L 10/27/21 03:50 Globulin 3.0 g/dL (1.3-4.6) 10/27/21 03:50 Lipase 30 U/L (13-60) 10/25/21 03:33 Urine Opiates Screen Positive ng/mL (Negative) H 10/25/21 08:50 Ur Barbiturates Screen Negative ng/mL (Negative) 10/25/21 08:50 Ur Phencyclidine Scrn Negative ng/mL (Negative) 10/25/21 08:50 Ur Amphetamines Screen Positive ng/mL (Negative) H 10/25/21 08:50 U Benzodiazepines Scrn Positive ng/mL (Negative) H 10/25/21 08:50 Urine Cocaine Screen Negative ng/mL (Negative) 10/25/21 08:50 U Marijuana (THC) Screen Negative ng/mL (Negative) 10/25/21 08:50 Hepatitis A IgM Ab Non-reactive (Nonreactive) 10/25/21 03:33 Hep Bs Antigen Non-reactive (Nonreactive) 10/25/21 03:33 Hep B Core IgM Ab Non-reactive (Nonreactive) 10/25/21 03:33 Hepatitis C Antibody Non-reactive (Nonreactive) 10/25/21 03:33 HIV 1&2 Ab & HIV 1 Ag Non-reactive (Non-Reactiv) 10/25/21 03:33 HIV 1&2 Antibody Non-reactive (Non-Reactiv) 10/25/21 03:33 Vitals Last Vital Signs Temp 98.6 F 10/27/21 07:11 Pulse 88 10/27/21 07:11 Resp 16 10/27/21 07:11 BP 162/87 10/27/21 07:11 Pulse Ox 95 10/27/21 07:11 Discharge Plan Discharge Patient Disposition: Home Condition: Stable Prescriptions: New ciprofloxacin HCl 500 mg tablet 500 mg PO BID Qty: 10 0RF metronidazole 500 mg tablet 500 mg PO Q8H 5 Days Qty: 15 0RF Continued lisinopril 40 mg tablet 40 mg PO DAILY 0RF metformin 500 mg tablet 1,000 mg PO DAILY 0RF escitalopram oxalate [Lexapro] 10 mg tablet 10 mg PO DAILY 0RF Januvia 100 mg tablet 100 mg PO DAILY 0RF rosuvastatin 10 mg tablet 10 mg PO DAILY 0RF metoprolol succinate 50 mg tablet extended release 24 hr 50 mg PO DAILY 0RF hydrochlorothiazide 25 mg tablet 25 mg PO DAILY 0RF garlic 1,000 mg capsule 1,000 mg PO DAILY 0RF hydrocodone-acetaminophen 7.5-325 mg tablet 1 tab PO Q6H PRN (Reason: Pain) 0RF potassium chloride 8 mEq Capsule, Extended Release 8 meq PO DAILY 0RF gabapentin 400 mg capsule 400 mg PO TID 0RF aspirin 81 mg Tablet,Delayed Release (Dr/Ec) 81 mg PO DAILY 0RF alprazolam 2 mg tablet 2 mg PO DAILY 0RF Held tizanidine 4 mg tablet 4 mg PO BID MDD 2 PRN (Reason: muscle spasticity) Qty: 60 0RF Hold Instructions: Resume on 11/04/21. Discharge Orders: Discharge Order (Routine); Ordered 10/27/21 Ordered By: Nathanael Ford Referrals: Ta Cobb MD [Physician] - 1 week (Return to surgery office in 1 week. Please call to make the follow up appointment on Thursday. ) Maco Summers MD [Physician] - Chata Vogel DO [Primary Care Provider] - 4-7 days (Please call to make a follow up appointment on Thursday following hospital discharge. ) Discharge Diet: Advance as tolerated Discharge Activity: Limit activity as instructed Patient Instructions: Ciprofloxacin (By mouth), Metronidazole (By mouth), Cholecystitis (GEN), Methamphetamine Use Disorder (GEN), Laparoscopic Cholecystectomy (GEN) Activity Restrictions/Additional Instructions: 1. Patient can shower after 48 hours from surgery 2. Remove Dermabond 7 to 10 days after surgery, if there is a secondary dressing can take down after 48 hours. 3. Up and walking as tolerated 4. Do not lift more than 5 pounds first 2 weeks after surgery and not more than 25 pounds 6 to 8 weeks after surgery. 5. Do not operate heavy machinery or drive while using pain medications. 6.Contact the office or return to the ER for worsening nausea vomiting fevers or chills, or noticing any redness around incision sites or discharge. Complete antibiotic course due to finding of gangrenous cholecystitis on removal of the gallbladder. Do not take tizanidine while taking ciprofloxacin due to risk of interaction. Abstain from any use of amphetamine for any other illicit substance due to risk of severe health effects resulting in disability or . Discharge Attestations Time Spent in Discharge Care*: greater than 30 min Quality Metrics Clinical Quality Measures [ No reported AMI, CVA or VTE this stay] Coding Level of Care Code Acute [facility] note Diagnoses Cholecystitis K81.9
[2021-10-27 11:11] LABS: Glucose Point of Care 150 mg/dL (70-110)
[2021-10-27] MEDS: atorvastatin 40 mg Tablet PO (11:43)
[2021-10-27] MEDS: insulin lispro 100 unit/1 mL SUBCUT (11:43)
[2021-10-27] MEDS: metoprolol succinate ER (24 HR) 50 mg Tablet PO (11:44)
[2021-10-27] MEDS: lisinopril 20 mg Tablet 40 MG PO (11:44)
[2021-10-27] MEDS: escitalopram 10 mg Tablet PO (11:44)
[2021-10-27] MEDS: hydroCHLOROthiazide 25 mg Tablet PO (11:44)
[2021-10-27 11:47] VITALS: BP 162/87; PULSE 88; RESP 16; TEMP 37; O2SAT 95
== END 2021-10-27 11:48 | disposition home or self-care (01) | DRG 418 ==
LOC: ER 05:50 → MEDSURG 06:11
PROVIDERS: Surgery; Admitting Provider Internal Medicine; Emergency Provider Emergency Medicine; PCP Family Medicine; Visit Provider Internal Medicine
PROC: 0FT44ZZ Resection of Gallbladder, Percutaneous Endoscopic Approach (ICD-10-PCS; CPT 47562; principal; 2021-10-26 08:00)
DX: K81.0 Acute cholecystitis (principal); E87.1 Hypo-osmolality and hyponatremia; K81.1 Chronic cholecystitis; M19.90 Unspecified osteoarthritis, unspecified site; G89.29 Other chronic pain; F32.A Depression, unspecified; E11.9 Type 2 diabetes mellitus without complications; K21.9 Gastro-esophageal reflux disease without esophagitis; I10 Essential (primary) hypertension; Z79.891 Long term (current) use of opiate analgesic; F17.220 Nicotine dependence, chewing tobacco, uncomplicated; N48.6 Induration penis plastica; I45.10 Unspecified right bundle-branch block; F15.10 Other stimulant abuse, uncomplicated; Z79.82 Long term (current) use of aspirin; Z79.84 Long term (current) use of oral hypoglycemic drugs; K76.0 Fatty (change of) liver, not elsewhere classified
CPT/HCPCS: 36415; 36416; 71045; 74177; 76705; 80053; 80074; 80306; 82962; 83690; 84484; 85025; 85610; 85730; 87070; 87075; 87205; 87806; 88304; 93005; 96365; 96372; 96375; 99285; J1100; J1170; J1644; J1815; J2270; J2370; J2405; J2543; J2704; J2710; J3010; J3490; J7030; Q9967

== ENCOUNTER 2024-10-25 23:19 | Emergency (ER) | payer SELFPAY ==
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
[2024-10-25 23:36] VITALS: BP 118/78; PULSE 120; RESP 18; TEMP 36.8; O2SAT 97; BMI 20.9
[2024-10-26 01:02] LABS: Alcohol Level 107 mg/dL (0-10)
[2024-10-26 01:18] VITALS: BP 119/71; PULSE 110; O2SAT 97
== END 2024-10-26 01:19 | disposition home or self-care (01) ==
PROVIDERS: Emergency Provider Emergency Medicine
DX: F10.920 Alcohol use, unspecified with intoxication, uncomplicated (principal); Z79.84 Long term (current) use of oral hypoglycemic drugs; Z79.82 Long term (current) use of aspirin; Y90.5 Blood alcohol level of 100-119 mg/100 ml
CPT/HCPCS: 36415; 80307; 99283